=== PATIENT | female | born 1960 | race Caucasian/White ===

== ENCOUNTER 2019-06-19 15:52 | Emergency (ER) | payer OTHER ==
[~2019-06-19] VITALS: Ht 175.3 cm; Wt 74.8 kg
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
--- NOTE | 2019-06-19 16:58 | NUR ---
DR MELGAR AT BEDSIDE FOR EVAL.
[2019-06-19] MEDS ORDERED: HYDROCODONE/APAP 5/325MG 1 EACH TABLET ONE (17:10)
[2019-06-19] MEDS ORDERED: ONDANSETRON 4 MG TAB.RAPDIS ONE (17:10)
[2019-06-19] MEDS ORDERED: HYDROCODONE/APAP 5/325MG 1 EACH TABLET PO ONE (17:30)
[2019-06-19] MEDS ORDERED: ONDANSETRON 4 MG TAB.RAPDIS SL ONE (17:30)
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
--- NOTE | 2019-06-19 19:16 | NUR ---
PT ENDORSED TO MATERIAL HANDLER FLOORPERSON DAVID AQUINO FOR ENRIQUE
--- NOTE | 2019-06-19 19:44 | NUR ---
Patient discharged to home in stable condition. Written and verbal after care instructions given. Patient verbalizes understanding of instruction. Patient is ambulatory with a steady gait.
--- NOTE | 2019-06-19 19:44 | NUR ---
Prescriptions given and explained to the patient. Advised not to drive when taking the presciptions.
[2019-06-19 19:45] VITALS: BP 137/72
== END 2019-06-19 19:45 | disposition home or self-care (01) ==
LOC: ER 15:53
DX: S16.1XXA Strain of muscle, fascia and tendon at neck level, initial encounter (principal); R07.89 Other chest pain; E78.00 Pure hypercholesterolemia, unspecified; V49.59XA Passenger injured in collision with other motor vehicles in traffic accident, initial encounter; Y93.89 Activity, other specified; Y92.488 Other paved roadways as the place of occurrence of the external cause; Y99.8 Other external cause status
CPT/HCPCS: 70450; 71045; 72125; 99284; A6403 ×2; Q0162